=== PATIENT | male | born 1990 | race Caucasian/White ===

== ENCOUNTER 2017-11-28 20:33 | Emergency (ER) | payer OTHER ==
[~2017-11-28] VITALS: Ht 182.9 cm; Wt 63.5 kg
[~2017-11-28 20:33] MED LIST: Bactrim Ds Tab1 EACH PO; CEPH500 PO; CLIN300 PO; CYCL10 PO; DIPATR PO; HYDACE5 PO; IBUP600 PO; IBUP800 PO; METR500 PO; Norco 5-325 Ta1 EACH PO; PENVK500 PO; PERM5TC TOP; Percocet 10-321 EACH PO; RXCLIN PO; SUCR1 PO; SULTRIDS PO; TRAM50 PO
== END 2017-11-28 22:12 | disposition home or self-care (01) ==
LOC: ER 20:33
DX: J02.0 Streptococcal pharyngitis (principal); F17.200 Nicotine dependence, unspecified, uncomplicated
CPT/HCPCS: 87081; 87430; J0561; J1100

== ENCOUNTER 2019-02-07 14:52 | Emergency (ER) | payer OTHER ==
[~2019-02-07] VITALS: Ht 182.9 cm; Wt 68.0 kg
[2019-02-07] MEDS ORDERED: PENVK500 PO (15:21)
== END 2019-02-07 15:45 | disposition home or self-care (01) ==
LOC: ER 14:52
DX: K04.7 Periapical abscess without sinus (principal); K02.9 Dental caries, unspecified; F17.200 Nicotine dependence, unspecified, uncomplicated
CPT/HCPCS: 99282; A9270-GY

== ENCOUNTER 2025-02-02 12:59 | Emergency (ER) | payer OTHER ==
[~2025-02-02] VITALS: Ht 182.9 cm; Wt 72.6 kg
[~2025-02-02 12:59] MED LIST changes: +Acetaminophen-1 EAC1 PO; +Amoxicillin500 MG PO; +Amoxicillin875 MG PO; +HYDROCODONE-AC1 EA10 PO; +PRED20 PO
[2025-02-02] MEDS ORDERED: FentaNYL Citrate 50 MCG/ML 2 ML Injection IV ONE ×2 (14:20→15:20)
[2025-02-02] MEDS ORDERED: Ondansetron HCl 2 MG / ML 2ML Vial IV ONE (14:20)
[2025-02-02] MEDS ORDERED: CEPH500 PO (15:59)
[2025-02-02 16:22] VITALS: BP 125/75
== END 2025-02-02 16:31 | disposition home or self-care (01) ==
LOC: ER 12:59
DX: S61.442A Puncture wound with foreign body of left hand, initial encounter (principal); F17.210 Nicotine dependence, cigarettes, uncomplicated; Z59.89 Other problems related to housing and economic circumstances; W01.198A Fall on same level from slipping, tripping and stumbling with subsequent striking against other object, initial encounter
CPT/HCPCS: 73130; 96374; 96375; 96376; 99283-25; J2405; J3010

== ENCOUNTER 2025-04-21 10:10 | Emergency (ER) | payer SELFPAY ==
[~2025-04-21] VITALS: Ht 182.9 cm; Wt 68.0 kg
[2025-04-21 10:20] VITALS: BP 143/78
[2025-04-21] MEDS ORDERED: Ketorolac Tromethamine 15mg Vial IM ONE (12:05)
[2025-04-21] MEDS ORDERED: CYCL10 PO (13:24)
[2025-04-21] MEDS ORDERED: Neurontin 300300 MG PO (13:24)
[2025-04-21] MEDS ORDERED: Naprosyn500 MG PO (13:24)
== END 2025-04-21 14:05 | disposition home or self-care (01) ==
LOC: ER 10:10
DX: M54.16 Radiculopathy, lumbar region (principal); F17.210 Nicotine dependence, cigarettes, uncomplicated; Z88.5 Allergy status to narcotic agent
CPT/HCPCS: 72131; 96372; 99283-25; A9270; J1885